=== PATIENT | male | born 1985 | race Caucasian/White ===

== ENCOUNTER 2022-01-30 20:57 | Emergency (ER) | payer OTHER, SELFPAY ==
--- NOTE | ~2022-01-30 | XR_ITS ---
EXAM: XR knee LT min 4V HISTORY: fall, BRUISING/ABRASION/SWELLING/PAIN UNDER PATELLA COMPARISON: None available FINDINGS: No fracture or dislocation. Normal mineralization. No significant degenerative changes. La rge volume fluid projects over the suprapatellar fossa. IMPRESSION: Large volume left knee joint effusion. No acute fracture or dislocation detected. Reviewed, dictated and finalized at location K. IMPRESSION: Large volume left knee joint effusion. No acute fracture or dislocation erlinda myers
--- NOTE | ~2022-01-30 | XR_ITS ---
EXAM: XR ankle RT min 3V HISTORY: FALL, LATERAL ANKLE PAIN AND BASE OF 5TH METATARSAL COMPARISON: None available FINDINGS: Normal mineralization. No fracture or dislocation. No lytic or blastic lesion. Joint space s maintained. No erosion or periosteal change. No large joint effusion. Lateral soft tissue swelling. IMPRESSION: Lateral soft tissue swelling, otherwise normal right ankle radiograph findings. Reviewed, dictated and finalized at location K.
[2022-01-30 20:59] VITALS: BP 152/99; PULSE 109; RESP 17; TEMP 36.8; O2SAT 99
--- NOTE | 2022-01-30 21:47 | ED.LOWEXIN ---
HPI - Extremity Injury (Lower) General Chief Complaint: Extremity Injury, Lower Stated Complaint: Left knee injury, right ankle injury-work injury Time Seen by Provider: 01/30/22 21:02 History of Present Illness HPI Narrative: 36-year-old male presents emergency room with complaints of left knee pain and right ankle pain. Patient states that he was walking down the stairs when he fell, landing on his left knee and then twisting his right ankle. Patient states the injuries occurred this morning while at work. States he took ibuprofen on multiple occasions today with a minimal amount of pain relief. Related Data Home Medications Medication Instructions Recorded Confirmed atorvastatin [Lipitor] 40 mg PO HS 01/30/22 01/30/22 Allergies Allergy/AdvReac Type Severity Reaction Status Date / Time No Known Allergies Allergy Verified 01/30/22 21:02 Review of Systems Review of Systems: CONSTITUTIONAL: Denies fever, chills, or sweats. EYES: Denies visual changes, redness, or discharge. ENT: Denies rhinorrhea, congestion, sore throat, or otalgia. CARDIOVASCULAR: Denies chest pain, palpitations, or edema. RESPIRATORY: Denies cough or dyspnea. GASTROINTESTINAL: Denies abdominal pain, nausea, vomiting, or diarrhea. GENITOURINARY: Denies dysuria or hematuria. SKIN: Denies rash or itching. MUSCULOSKELETAL: Reports left knee, and right ankle pain NEUROLOGIC: Denies headache, numbness, dizziness, or weakness. PSYCHIATRIC: Denies anxiety or depression. Exam Narrative: GENERAL: Well-appearing, well-nourished, and in no acute distress. HEAD: Normocephalic, atraumatic. EYES: PERRLA and EOMI. CHEST: Clear to auscultation. No respiratory distress. No wheezes rales or rhonchi HEART: Regular rate and rhythm. No murmur heard. Normal peripheral pulses. ABDOMEN: Soft, nontender, nondistended, normal active bowel sounds. EXTREMITIES: left knee: Soft tissue swelling tenderness infrapatellar and medial patellar surfaces. No joint laxity, full range of motion, no bony abnormality. Right ankle: Soft tissue swelling and tenderness to the lateral malleolus, no joint laxity, no bony abnormality, neurovascular intact distally SKIN: Warm, dry, no rash. NEURO: No focal deficits. Alert and oriented x3. PSYCH: Normal mood and affect. Course Vital Signs Vital signs: Vital Signs Temperature 36.8 C 01/30/22 20:59 Pulse Rate 109 H 01/30/22 20:59 Respiratory Rate 17 01/30/22 20:59 Blood Pressure 152/99 H 01/30/22 20:59 Pulse Oximetry 99 01/30/22 20:59 Temperature 36.8 C 01/30/22 20:59 Pulse Rate 109 H 01/30/22 20:59 Respiratory Rate 17 01/30/22 20:59 Blood Pressure 152/99 H 01/30/22 20:59 Pulse Oximetry 99 01/30/22 20:59 MDM - Extremity Injury (Lower) Differential Diagnosis Differential diagnosis: Likely ankle sprain and strain Medical Records Attestation: I reviewed the patient's medical records. Imaging Data Radiologist's impression: Impressions Ankle X-Ray 01/30/22 21:22 IMPRESSION: Lateral soft tissue swelling, otherwise normal right ankle radiograph findings. Knee X-Ray 01/30/22 21:23 IMPRESSION: Large volume left knee joint effusion. No acute fracture or dislocation detected. Discharge Plan Discharge Clinical Impression: Ankle sprain and strain, Contusion of knee, left Patient Disposition: Home, Self-Care Condition: Stable Instructions: Antibiotic Form Additional Instructions: Recommend following up with orthopedics and 1 week if your pain does not improve. We would consider wearing a boot for your right ankle for stabilization. If you continue to have pain in in a week, follow-up with either Ortho or your PCP for possible physical therapy. Prescriptions: New celecoxib [Celebrex] 200 mg capsule 200 mg PO BID Qty: 20 RF: 0 No Action atorvastatin [Lipitor] 40 mg Tablet 40 mg PO HS RF: 0 Follow-up/Referrals: Juan,CEDRIC Ynag [Primary C
== END 2022-01-30 22:02 | disposition home or self-care (01) ==
PROVIDERS: Emergency Provider Nurse Practitioner Family; PCP Physician Assistant
DX: S80.02XA Contusion of left knee, initial encounter (principal); S93.401A Sprain of unspecified ligament of right ankle, initial encounter; S96.911A Strain of unspecified muscle and tendon at ankle and foot level, right foot, initial encounter; W10.9XXA Fall (on) (from) unspecified stairs and steps, initial encounter
CPT/HCPCS: 73564; 73610; 99284

== ENCOUNTER → 2023-07-13 13:28 | Outpatient (CLI) | payer BC, SELFPAY ==
--- NOTE | ~2023-07-13 | CT_ITS ---
EXAMINATION: CT abdomen pelvis w con INDICATION: Left lower quadrant abdominal swelling TECHNIQUE: Computed tomographic images of the abdomen and pelvis were obtained after the administrati on of 100 cc of Omnipaque 350 intravenous contrast. The dose-length product (DLP) was 978.09 mGy-cm. Automated exposure control and iterative reconstruction technique were employed. COMPARISON: None available FINDINGS: The lung bases are clear. The heart size is normal. The liver, spleen, pancreas, gallbladde r, and adrenal glands are normal. There is a 1.6 cm cyst of the right kidney. The left kidney is unre markable. No pathologically enlarged abdominal or pelvic lymph nodes are identified. No free intraper itoneal gas or evidence of bowel obstruction. There is a 6.2 x 1.5 x 4.9 cm intramuscular lipoma of t he left lower abdominal wall corresponding to the palpable abnormality of concern. There is mild lumb ar spondylosis. IMPRESSION: 1. Intramuscular lipoma of the lower abdominal wall corresponding to the palpable abnormality of conc marlene. Reviewed, dictated and finalized at location B. IMPRESSION: 1. Intramuscular lipoma of the lower abdominal wall corresponding to the palpab le abnormality of concern.
== END ==
PROVIDERS: PCP Physician Assistant; Visit Provider Physician Assistant
DX: R19.04 Left lower quadrant abdominal swelling, mass and lump (principal)
CPT/HCPCS: 74177; Q9967

== ENCOUNTER 2024-12-11 13:41 | Outpatient (CLI) | payer BC, SELFPAY ==
--- NOTE | ~2024-12-11 | XR_ITS ---
EXAMINATION: XR chest 2V 12/11/2024 14:12 INDICATION: Cough PROCEDURE: 2 view chest COMPARISON: No prior studies for comparison. FINDINGS: The lungs are clear. The cardiomediastinal silhouette is within normal limits. There are no pleural effusions. There is no pneumothorax suspected. IMPRESSION: 1: NO ACUTE CARDIOPULMONARY DISEASE. Reviewed, dictated and finalized at location B. GER SITE
--- OUTSIDE RECORDS SUMMARY | 2024-12-11 13:50 | XMS_ITS | Referral Summary ---
Author Organization [facility] Address [address] [place] [address] Care Team Providers Care Weight And Balance Control Agent Name Role Phone Unavailable Primary Care Provider Unavailabl e Source Comments [facility],non-owned Affiliates and Associated Physician Practices is amultiple site organization consisting of ambulatory clinics and hospital sitesin [place], [place], [place] and [place]. This disclosure is being madepursuant to the Care Everywhere program and may not contain all information available regarding this patient. Last updated 18.[facility] Allergies No known active allergies Medications Be aware that medications may not be up to date on this document. Always verify current medications with the patient. No known medications Immunizations Name Administration Dates Next Due TDAP (7yrs+) 03/10/2017 Social History Tobacco Use Types Packs/Day Years Used Date Smoking Tobacco: Former Cigars Smokeless Tobacco: Never Sex and Gender Information Value Date Recorded Sex Assigned at Not on file Gender Identity Not on file Sexual Orientation Not on file Last Filed Vital Signs Vital Sign Reading Time Taken Comments Blood Pressure 122/80 12/31/2017 12:36 PM REGULATORY COMPLIANCE DIRECTOR Pulse 79 12/31/2017 12:36 PM REGULATORY COMPLIANCE DIRECTOR Temperature 36.9 C (98.4 F) 12/31/2017 12:36 PM REGULATORY COMPLIANCE DIRECTOR Respiratory Rate 14 12/31/2017 12:36 PM REGULATORY COMPLIANCE DIRECTOR Oxygen Saturation 97% 12/31/2017 12:36 PM REGULATORY COMPLIANCE DIRECTOR Inhaled Oxygen Concentration - - Weight 86.2 kg (190 lb) 12/31/2017 12:36 PM REGULATORY COMPLIANCE DIRECTOR Height 177.8 cm (5' 10 ) 12/31/2017 12:36 PM REGULATORY COMPLIANCE DIRECTOR Body Mass Index 27.26 12/31/2017 12:36 PM REGULATORY COMPLIANCE DIRECTOR Plan of Treatment Not on file
--- OUTSIDE RECORDS SUMMARY | 2024-12-11 13:50 | XMS_ITS | Continuity of Care Document ---
Author Organization [facility] Address [address] [place] [address] Phone Care Team Providers Care Osd Clerk Name Role Phone Juan A Gillespie MD Unavailable Unavailable Allergies, Adverse Reactions, Alerts Substance Reaction Status Criticality No Known Allergies Active No Inform ation Medications Medication Instructions Dosage Effective Dates (start - stop) Status Comments No Drug Therapy Prescribed Advance Directives Directive Yes / No Effective Date File Name No Information Encounters Encounter Description Practice Location Reason(s) For Visit Diagnoses Date Provider Providers [facility] [address], [place], [place], [id number], tel:[phone] [facility] No Information 5 Trame Greencastle. [address] [facility], [address], [place], [place], [address] . tel:[phone] [facility], [address], [place], [place], [address], tel:[phone] [facility] Short lasting unilateral neuralgiform headache with conjunctival injection and tearing 5 Trame Juan A. [address], [place], [place], [address] . tel:[phone] [facility], [address], [place], [place], [address], [place] tel:[phone] [facility] Short lasting unilateral neuralgiform headache with conjunctival injection and tearing 5 Trame Greencastle. [address], [address], [place], [place], [address] . tel:[phone] [facility], [address], [place], [place], [address], tel:[phone] [facility] Routine general medical examination at a health care facilityShort lasting unilateral neuralgiform headache with conjunctival injection and tearing [phone] Miguel Velazco. [address], [place], [place], [address] . tel:[phone] Referring Provider: Juan A Gillespie, [address], [place], [address] . tel:[phone] [facility], [address], [place], [place], [address], tel:[phone] [facility] HEALTH EXAM-GROUP SURVEY [phone] Velaz[address]. [address], [place], [place], [address] . tel:[phone] Family History Family Member Type Diagnosis Age At Onset Maternal grandfather Problem (finding) pulmonary emphy sema Sister Problem (finding) Alive and well Mother Problem (finding) hypertension Maternal grandmother Problem (finding) hypertension Father Problem (finding) hypertension Maternal grandmother Problem (finding) Cardiovascular disease Mother Problem (finding) malignant neop lasm of breast in first degree relative Father Problem (finding) raised blood lipids Mother Problem (finding) raised blood lipids Payers Payer name Insurance type Covered libertarian ID Authorrex duarte(s) [facility] [id number] Social History Type Description Quantity Date Captured Comments Alcohol Use Details Unknown Caffeine Use Details Unknown Tobacco Use Status Smoking Status No Information Sex Male Chief Complaint And Reason For Visit No Information Reason For Referral Reason For Referral No Information History Of Present Illness Encounter Date Complaint History Of Prese nt Illness No Information Functional Status Date Functional Assessmen t No Information Medications Administered Medication Instructions Dosage Effective Dates (start - stop) Status Comments No Drug Therapy Prescribed Instructions Date Instruction Additional Infor mation No Information Assessments Type Assessment Date No Information Patient Care Teams Name Effective Dates (start - stop) Status Members No Information
--- OUTSIDE RECORDS SUMMARY | 2024-12-11 13:50 | XMS_ITS | Patient Health Summary ---
Author Organization [facility] Address [address] [place] [address] Care Team Providers Care Block Sorter Name Role Phone Unavailable Primary Care Provider Unavailabl e Note from [facility],non-owned Affiliates and Associated Physician Practices is amultiple site organization consisting of ambulatory clinics and hospital sitesin [place], [place], [place]. This disclosure is being madepursuant to the Care Everywhere program and may not contain all information available regarding this patient. Last updated 18.[facility] Allergies No known active allergies Medications Be aware that medications may not be up to date on this document. Always verify current medications with the patient. No known medications Immunizations * TDAP (7yrs+)(Given 03/10/2017) Social History Tobacco Use Types Packs/Day Years Used Date Smoking Tobacco: Former Cigars Smokeless Tobacco: Never Sex and Gender Information Value Date Recorded Sex Assigned at Not on file Gender Identity Not on file Sexual Orientation Not on file Last Filed Vital Signs Vital Sign Reading Time Taken Comments Blood Pressure 122/80 12/31/2017 12:36 PM ART DIRECTOR Pulse 79 12/31/2017 12:36 PM ART DIRECTOR Temperature 36.9 C (98.4 F) 12/31/2017 12:36 PM ART DIRECTOR Respiratory Rate 14 12/31/2017 12:36 PM ART DIRECTOR Oxygen Saturation 97% 12/31/2017 12:36 PM ART DIRECTOR Inhaled Oxygen Concentration - - Weight 86.2 kg (190 lb) 12/31/2017 12:36 PM ART DIRECTOR Height 177.8 cm (5' 10 ) 12/31/2017 12:36 PM ART DIRECTOR Body Mass Index 27.26 12/31/2017 12:36 PM ART DIRECTOR Procedures * STREP A SCREEN - POINT OF CARE (AMB) STL(Performed 12/31/2017) Performed for Acute streptococcal pharyngitis Results * (ABNORMAL) STREP A SCREEN - POINT OF CARE (AMB) STL (12/31/2017) Strep A Rapid POCT Positive(A) Negative Strep A Internal Control Present Lot # [id number] Expiration Date 07/14/2019 Throat ENTIRE THROAT (SURFACE REGION OF NECK) / Unknown 12/31/2017 Vernell Wisdom CUSTOMER SERVICE CONSULTANT-BRICK CATCHER LAB - POINT OF CARE ORDERABLES
--- OUTSIDE RECORDS SUMMARY | 2024-12-11 13:50 | XMS_ITS | Encounter Summary ---
Author Organization [facility] Address [address] [place] [address] Care Team Providers Care Stadium Attendant Name Role Phone Celia Martinez Primary Care Pr ovider Gerald Antony MD Primary Care Provider [phone] Encounter Details Date Type Department Care Team (Late st Contact Info) Description 08/30/2023 Orders Only [facility] Cancer Genetics Department [address] [place] [id number] Crystal Bacon, [facility] [address] [facility] [address] [place] [address] Family history of genetic disease carrier (Primary Dx); Family history of breast cancer Social History Tobacco Use Types Packs/Day Years Used Date Smoking Tobacco: Never Sex and Gender Information Value Date Recorded Sex Assigned at Not on file 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 Gender Identity Not on file Sexual Orientation Not on file documented as of this encounter Plan of Treatment Not on file documented as of this encounter Visit Diagnoses Diagnosis Family history of genetic disease carrier- Primary Family history of breast cancer Family history of malignant neoplasm of breast documented in this encounter Care Teams Stadium Attendant Relationship Specialty Start Date End Date Celia Martinez PA PCP - General 10/02/21 01/22/24 Gerald Antony MD [address] [facility] [address] [place] [address] PCP - General Family Medicine 01/23/24 documented as of this encounter
--- OUTSIDE RECORDS SUMMARY | 2024-12-11 13:50 | XMS_ITS | Clinical Summary ---
Author Organization [facility] [address] Address [address] [place] [id number] Care Team Providers Care Pmo Lead Name Role Phone Gerald Antony MD Primary Care Provider [phone] Allergies No known active allergies Medications atorvastatin (LIPITOR) 40 mg tablet Take 1 tablet (40 mg total) by mouth daily Active multivit-min/gilmar cornelio fumarate (MULTI VITAMIN ORAL) Take by mouth Active oxyCODONE-acetam inophen (PERCOCET) 5-325 mg per tablet Take 1 tablet by mouth every 4 (four) hours as needed Active benzonatate (TESSALON) 200 mg capsuleIndicatio ns:Lower respiratory infection (e.g., bronchitis, pneumonia, pneumonitis, pulmonitis) Take 1 capsule (200 mg total) by mouth 3 (three) times a day as needed for cough 30 capsule 02/17/2024 Active Active Problems Problem Noted Date Diagnosed Date Hypersomnolence 05/16/2024 Encounter for medical examination to establish c are 01/23/2024 Assessment & Plan (01/23/2024 9:51 AM CDT): A(n) initial well visit to establish care has been performed today. Kar Linton is not up to date on screening tests. He is in need of hepatitis c screening and Cholesterol screening-. He is not up to date on needed preventative vaccinations; He is in need of Covid-19 (booster). We discussed healthy lifestyle habits, educational material has been given. Medications reviewed, changes documented as per the medical record and discussed with patient along with risks vs benefits. 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 Immunizations Immunization Administration Dates Next Due DTP 05/24/1988, 5,1983,07/24,1983 Influenza, Quadrivalent, Spl it, Preservative Free, Intramuscular 08/08/2020 MMR 03/31/1993,07/01/1984 OPV 05/24/1988, 5,1983,07/24,1983 Td, adsorbed 07/23/1998 Tdap 03/10/2017 Surgical History Surgery Date Site/Laterality Comments MASS EXCISION Medical History Medical History Date Comments Hyperlipidemia Sleep difficulties Family History Medical History Relation Name Comments No Known Problems Daughter Lizbeth Gorlin syndrome Father Emil no genetic t esting (assumed PTCH1+) Melanoma Father Emil COPD Maternal Grandfather Nabil COPD Maternal Grandmother Jillian Diabetes Maternal Grandmother Jillian Heart failure Maternal Grandmother Jillian Breast cancer Mother Claudia no genetic krunal ting No Known Problems Paternal Grandfather Catalino No Known Problems Paternal Grandmother Jessie Gorlin syndrome Sister Rosaline PTCH1 Positi ve No Known Problems Son Pop Relation Name Status Comments Daughter Lizbeth Alive Father Emil Alive Maternal Grandfather Nabil (Age 80) Maternal Grandmother Jillian (Age 82) Mother Claudia Alive Paternal Grandfather Catalino (Age 80) Paternal Grandmother Jessie (Age 80) Sister Rosaline Alive Son Pop Alive Social History Tobacco Use Types Packs/Day Years Used Date Smoking Tobacco: Never Smokeless Tobacco: Never AUDIT-C Answer Date Recorded Q1: How often do you have a drink containing alc ohol? Monthly or less 01/23/2024 Q2: How many drinks containi ng alcohol do you have on a typical day when you are drinking? 1 or 2 01/23/2024 Q3: How often do you have si x or more drinks on one occasion? 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 Not on file Not on file Obstetrics History Last Filed Vital Signs Vital Sign Reading Time Taken Comments Blood Pressure 136/98 02/17/2024 12:22 PM CDT Pulse 68 02/17/2024 12:22 PM CDT Temperature 36.1 C (96.9 F) 02/17/2024 12:22 PM CDT Respiratory Rate 16 02/17/2024 12:22 PM CDT Oxygen Saturation 100% 02/17/2024 12:22 PM CDT Inhaled Oxygen Concentration - - Weight 100.7 kg (222 lb) 02/17/2024 12:22 PM CDT Height 180.3 cm (5' 11 ) 02/17/2024 12:22 PM CDT Body Mass Index 30.96 02/17/2024 12:22 PM CDT Plan of Treatment Health Maintenance Due Date Last Done Comments Varicella Vaccines (1 of 2 - 13+ 2-dose series) 1996 Hepatitis B Screening 2001 Influenza Vaccine (#1) 2024 08/08/2020 Depression Screening 01/22/2025 01/23/2024 Regular Well Visit/Exam 18-64 01/22/2025 01/23/2024 DTaP/Tdap/Td Vaccine (7 - Td or Tdap) 03/10/2027 03/10/2017, 07/23/1998, 05/24/1988, Additional history exists Covid-19 Vaccine Discontinued 11/03/2020, 10/13/2020 Hepatitis C Screening Completed 01/23/2024 HPV Vaccines Aged Out No longer eligi ble based on patient's age to complete this topic Pneumococcal vaccine <65 Aged Out No longer eligible based on patient's age to complete this topic Procedures Procedure Name Priority Date/Time Associated Diagnosis Comments HEPATITIS C ANTIBODY Routine 01/23/2024 9:58 AM CDT Encounter for hepatitis C screening test for low risk patient from Last 3 Months or Most Recently Relevant to Health Maintenance Results * Hepatitis C antibody Blood (01/23/2024 9:58 AM CDT) Hep C Ab Nonreactive Nonreactive Comment: Interpretive Data Nonreactive: Antibodies to HCV not detected. Does NOT exclude the possibility of recent exposure to HCV. Equivocal: Equivocal for HCV antibodies. Supplemental molecular testing will be automatically performed to determine infection status in accordance with current CDC screening recommendations. Reactive: Positive for HCV antibodies. This may represent current or past HCV infection. Supplemental molecular testing will be automatically performed to determine current infection status in accordance with current CDC screening recommendations. Interpretive data was last revised on 2020. Blood 01/23/2024 9:58 AM CDT 01/23/2024 2:14 PM CDT Gerald Antony MD LAB MICROBIOLOGY - GENERAL ORDERABLES Final Result Performing Organization Address City/State/[facility] [place] Phone Number [facility] [address] Department [place] [address] from Last 3 Months or Most Recently Relevant to Health Maintenance Insurance [facility] Care Teams Pmo Lead Relationship Specialty Start Date End Date Gerald Antony MD [address] [address] PCP - General Family Medicine 01/23/24
--- OUTSIDE RECORDS SUMMARY | 2024-12-11 13:50 | XMS_ITS | Referral Summary ---
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 Not on file Not on file Last Filed Vital Signs [...] 02/17/2024 12:22 PM CDT Plan of Treatment Not on file Procedures Procedure Name Priority Date/Time Associated Diagnosis [...] 9:58 AM CDT 01/23/2024 2:14 PM CDT us Gerald Antony MD LAB MICROBIOLOGY - GENERAL ORDERABLES Final Result [facility] [address] Department [place] [address] from Last 3 Months or Most Recently Relevant to Health Maintenance Insurance [facility] [place] Care Teams Retail Field Merchandiser Relationship Specialty Start Date End Date Gerald Antony MD [address] [address] PCP - General Family Medicine 01/23/24
--- OUTSIDE RECORDS SUMMARY | 2024-12-11 13:50 | XMS_ITS | Clinical Summary ---
Author Organization [facility] [employer] Address [address] [place] [address] Care Team Providers Care Drupal Developer Name Role Phone Unavailable Primary Care Provider Unavailabl e Source Comments [facility] [employer],non-owned Affiliates and Associated Physician Practices is amultiple site organization consisting of ambulatory clinics and hospital sitesin [place], [place]. This disclosure is being madepursuant to the Care Everywhere program and may not contain all information available regarding this patient. Last updated 18.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 Pulse 79 12/31/2017 12:36 PM 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 Temperature 36.9 C (98.4 F) 12/31/2017 12:36 PM 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 Respiratory Rate 14 12/31/2017 12:36 PM 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 Oxygen Saturation 97% 12/31/2017 12:36 PM 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 Inhaled Oxygen Concentration - - Weight 86.2 kg (190 lb) 12/31/2017 12:36 PM 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 Height 177.8 cm (5' 10 ) 12/31/2017 12:36 PM 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 Body Mass Index 27.26 12/31/2017 12:36 PM 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 Plan of Treatment Health Maintenance Due Date Last Done Comments LIPID TESTING 1983 HIV SCREENING 1998 HEPATITIS C SCREENING 03/21/2001 HEPATITIS B VACCINE (1 of 3 - 19+ 3-dose series) 2002 COVID-19 VACCINE (2023-2 5 season) 2024 INFLUENZA VACCINE (#1) 2024 DEPRESSION SCREENING 10/24/2024 DTAP/TDAP/TD VACCINES (2 - T d or Tdap) 03/10/2027 03/10/2017 ZOSTER VACCINE (1 of 2) 2033 HIB VACCINE Aged Out No longer eligi ble based on patient's age to complete this topic HPV VACCINE Aged Out No longer eligi ble based on patient's age to complete this topic MENINGOCOCCAL (Group B) VACCINE Aged Out No longer eligible based on patient's age to complete this topic MENINGOCOCCAL VACCINE Aged Out No chaka usama eligible based on patient's age to complete this topic PNEUMOCOCCAL VACCINE Aged Out No long er eligible based on patient's age to complete this topic
--- OUTSIDE RECORDS SUMMARY | 2024-12-11 13:50 | XMS_ITS | Data Portability ---
Author Organization [place] [employer], Main Office Address [address] [place] [address] Care Team Providers Care Firer Boiler Name Role Phone ROSALINEMERLYN Svp Group Director [phone] OSCAR TAVERAS Primary Care Provider OSCAR TAVERAS Referring Provider Assessment Encounter Date Assessment Date Assessment LastModified by Organization Details LastModified Time 08/30/2023 08/30/2023 Abdominal wall mass. Intramuscular lipoma per CT report. Will obtain the actual images. But in the meantime we will schedule for excision under anesthesia. Risks and benefits were discussed risks include bleeding, infection numbness and weakness Not available 08/30/2023 13:07:51 09/29/2023 09/29/2023 Status post excision intramuscular lipoma left lower quadrant abdominal wall. Doing well. Follow up p.r.n. pathology benign Not available 09/29/2023 10:46:34 Plan of Treatment Reminders Order Date Submit Date Provider Last Modified By Organization Details Last Modified Time Details Appointments None recorded. Lab lipid panel, serum 2022 023 [email or web address] [facility], 2022 [address], [address], [place], [address], 3 09:06:39 PSA, serum or plasma 2022 023 [email or web address] [facility], 2022 [address], [address], [place], [address], 3 09:06:40 urinalysis, complete 2022 023 [email or web address] [facility], 2022 [address], [address], [place], [address], 3 09:06:40 culture, urine 2022 023 [email or web address] [facility], 2022 E[address], [address], [place], [address], 3 09:06:40 CT + NG RNA, PCR, unspecified specimen 2022 023 [email or web address] [facility], 2022 [address], [address], [place], [address], 3 09:06:40 TSH + free T4, serum 2022 023 [facility], 2022 Eben Hernandez, [address], [place], [address], 3 08:57:40 CBC w/ auto diff 2022 023 [email or web address] [facility], 2022 [address], [address], [place], [address], 3 09:06:40 CMP, serum or plasma 2022 023 [email or web address] [facility], 2022 [address], [address], [place], [address], 3 09:06:40 HbA1c (hemoglobin A1c), blood 2022 023 [email or web address] [facility], 2022 [address], [address], [place], [address], 3 09:06:40 Referral None recorded. Procedures None recorded. Surgeries None recorded. Imaging CT, abdomen + pelvis, w/ contrast - approved [id number] 07/06/2023 - 09/03/[address] [facility], 2022 El[address], [address], [place], [address], 3 08:36:48 Medication Orders None recorded. Patient TargetsNo targets recorded. Patient InstructionsNo instructions recorded. Reason for Referral None Reported. Results Created Date Observation Date Name Description Value Unit Range Abnormal Flag Note LastModifiedBy Organization Detail LastModifiedTime 12/04/19 22 12/07/2021 CULTU RE, URINE , ROUTI NE culture, urine, routine CULTU RE, URINE , ROUTI NE Micro Numbe r: [id number] Test Statu s: Final Speci men Sourc e: Urine Speci men Quali ty: Adequ ate Resul t: No Growt h We recei russell a prese rved urine cultu re trans port tube with eithe r no order indic ated or a sourc e which is inapp ropri ate for the test reque sted. A urine cultu re was perfo rmed. If this is not what you inten ded to order , pleerik e conta ct your local clien t servi ce repre senta tive immed iatel y so that we can adjus t our gina ng appro priat ngozi. You may also inqui re about alter nativ e or addit ional testi ng. Not Available [address] [address] [place], [address], 12/07/2021 11:39:42 12/04/19 22 12/07/2021 TESTO STERO NE, FREE (DIAL YSIS) AND TOTAL ,MS testosterone , total, MS 433 NG/dL 250-11 00 For addit ional raheelr juana guajardo refer to https ://ed ucati on.qu estdi agnos tics. com/f aq/FA Q165 (This link is being provi ded for infor matlindsey nal/e ducat ional purpo ses only. ) (Note ) This test was devel oped and its saravanan tical perfo rmanc e bryan cteri stics have been deter mined by [employer]. It has not been clear ed or appro russell by the FDA. This assay has been valid ated pursu ant to the CLIA regul ation s and is used for clini keren purpo ses. Not Available [address], [address], 12/07/2021 11:39:42 12/04/19 22 12/07/2021 TESTO STERO NE, FREE (DIAL YSIS) AND TOTAL ,MS testosterone , free 83.5 pg/mL 35.0-1 55.0 (Note ) This test was devel oped and its saravanan tical perfo rmanc e bryan cteri stics have been deter mined by [employer]. It has not been clear ed or appro russell by the FDA. This assay has been valid ated pursu ant to the CLIA regul ation s and is used for clini keren purpo ses. DANIELA med fusio n [address] [facility] [address] [facility] [address] [phone] Garfield irene MD Not Available [facility] [address], [address], 12/07/2021 11:39:42 12/04/19 22 12/07/2021 URINA LYSIS REFLE X color yellow yellow normal Not Available [address], [address], 12/07/2021 11:39:41 12/04/19 22 12/07/2021 URINA LYSIS REFLE X appearance clear clear normal Not Available [facility] [address], [address], 12/07/2021 11:39:41 12/04/19 22 12/07/2021 URINA LYSIS REFLE X specific gravity 1.023 1.001- 1.035 normal Not Available [facility] [address], [address], 12/07/2021 11:39:41 12/04/19 22 12/07/2021 URINA LYSIS REFLE X pH 5.5 5.0-8. 0 normal Not Available [facility] [address] [place], [address], 12/07/2021 11:39:41 12/04/19 22 12/07/2021 URINA LYSIS REFLE X glucose negati ve negati ve normal Not Available [facility] [address], [address], 12/07/2021 11:39:41 12/04/19 22 12/07/2021 URINA LYSIS REFLE X bilirubin negati ve negati ve normal Not Available [facility] [address], [address], 12/07/2021 11:39:41 12/04/19 22 12/07/2021 URINA LYSIS REFLE X ketones negati ve negati ve normal Not Available [address], [address], 12/07/2021 11:39:41 12/04/19 22 12/07/2021 URINA LYSIS REFLE X occult blood negati ve negati ve normal Not Available [address], [address], 12/07/2021 11:39:41 12/04/19 22 12/07/2021 URINA LYSIS REFLE X protein negati ve negati ve normal Not Available [address], [address], 12/07/2021 11:39:41 12/04/19 22 12/07/2021 URINA LYSIS REFLE X nitrite negati ve negati ve normal Not Available [address], [address], 12/07/2021 11:39:41 12/04/19 22 12/07/2021 URINA LYSIS REFLE X leukocyte esterase negati ve negati ve normal Not Available [facility] [address], [address], 12/07/2021 11:39:41 12/04/19 22 12/07/2021 CBC (INCL UDES DIFF/ PLT) white blood cell count 6.2 thous and/u L 3.8-10 .8 normal Not Available [address], [address], 12/07/2021 11:39:40 12/04/19 22 12/07/2021 CBC (INCL UDES DIFF/ PLT) red blood cell count 5.39 meagan on/uL 4.20-5 .80 normal Not Available [address], [address], 12/07/2021 11:39:40 12/04/19 22 12/07/2021 CBC (INCL UDES DIFF/ PLT) hemoglobin 16.3 g/dL 13.2-1 7.1 normal Not Available [address], [address], 12/07/2021 11:39:40 12/04/19 22 12/07/2021 CBC (INCL UDES DIFF/ PLT) hematocrit 47.2 % 38.5-5 0.0 normal Not Available [address], [address], 12/07/2021 11:39:40 12/04/19 22 12/07/2021 CBC (INCL UDES DIFF/ PLT) MCV 87.6 fL 80.0-1 00.0 normal Not Available [address], [address], 12/07/2021 11:39:40 12/04/19 22 12/07/2021 CBC (INCL UDES DIFF/ PLT) MCH 30.2 pg 27.0-3 3.0 normal Not Available [address], [address], 12/07/2021 11:39:40 02/11/20 22 12/07/2021 CBC (INCL UDES DIFF/ PLT) MCHC 34.5 g/dL 32.0-3 6.0 normal Not Available [address], [address], 12/07/2021 11:39:40 12/04/19 22 12/07/2021 CBC (INCL UDES DIFF/ PLT) RDW 13.2 % 11.0-1 5.0 normal Not Available [address], [address], 12/07/2021 11:39:40 12/04/19 22 12/07/2021 CBC (INCL UDES DIFF/ PLT) platelet count 257 thous and/u L 140-40 0 normal Not Available [address], [address], 12/07/2021 11:39:40 12/04/19 22 12/07/2021 CBC (INCL UDES DIFF/ PLT) MPV 10.1 fL 7.5-12 .5 normal Not Available [address], [address], 12/07/2021 11:39:40 12/04/19 22 12/07/2021 CBC (INCL UDES DIFF/ PLT) absolute neutrophils 3875 cells /uL 1500-7 800 normal Not Available [address], [address], 12/07/2021 11:39:40 12/04/19 22 12/07/2021 CBC (INCL UDES DIFF/ PLT) absolute lymphocytes 1376 cells /uL 850-39 00 normal Not Available [address], [address], 12/07/2021 11:39:40 12/04/19 22 12/07/2021 CBC (INCL UDES DIFF/ PLT) absolute monocytes 657 cells /uL 200-95 0 normal Not Available [facility] [address], [address], 12/07/2021 11:39:40 12/04/19 22 12/07/2021 CBC (INCL UDES DIFF/ PLT) absolute eosinophils 229 cells /uL 15-500 normal Not Available [facility] [address], [address], 12/07/2021 11:39:40 12/04/19 22 12/07/2021 CBC (INCL UDES DIFF/ PLT) absolute basophils 62 cells /uL 0-200 normal Not Available [facility] [address], [address], 12/07/2021 11:39:40 12/04/19 22 12/07/2021 CBC (INCL UDES DIFF/ PLT) neutrophils 62.5 % normal Not Available [facility] [address], [address], 12/07/2021 11:39:40 12/04/19 22 12/07/2021 CBC (INCL UDES DIFF/ PLT) lymphocytes 22.2 % normal Not Available [facility] [address], [address], 12/07/2021 11:39:40 12/04/19 22 12/07/2021 CBC (INCL UDES DIFF/ PLT) monocytes 10.6 % normal Not Available [facility] [address], [address], 12/07/2021 11:39:40 12/04/19 22 12/07/2021 CBC (INCL UDES DIFF/ PLT) eosinophils 3.7 % normal Not Available [facility] [address], [address], 12/07/2021 11:39:40 12/04/19 22 12/07/2021 CBC (INCL UDES DIFF/ PLT) basophils 1.0 % normal Not Available [facility] [address] [place], [address], 12/07/2021 11:39:40 12/04/19 22 12/07/2021 HEMOG LOBIN A1C hemoglobin A1C 4.8 %_of_ total _HGB <5.7 normal For the purpo se of nina may for the prese nce of diabe krunal: <5.7% Consi stent with the absen ce of diabe krunal 5.7-6 .4% Consi stent with incre ased risk for diabe krunal (pred iabet es) > or =6.5% Consi stent with diabe krunal This assay resul t is consi stent with a decre ased risk of diabe krunal. Curre ntly, no conse nsus exist s vidhya arrington use of hemog lobin A1c for diagn osis of diabe krunal in child haydee. Accor ding to Ameri can Diabe krunal Assoc iatio n (ADA) guide lines , hemog lobin A1c <7.0% repre sents optim al contr ol in non-p regna nt diabe tic patie nts. Diffe rent metri cs may apply to speci fic patie nt popul ation s. Stand ards of Medic al Care in Diabe krunal(A DA). Not Available [address] [address] [place], [address], 12/07/2021 11:39:39 12/04/19 22 12/07/2021 COMPR EHENS TIMBO METAB OLIC PANEL glucose 95 mg/dL 65-99 normal Fasti ng refer ence inter yesika Not Available [facility] [address] [address] [place], [address], 12/07/2021 11:39:39 12/04/19 22 12/07/2021 COMPR EHENS TIMBO METAB OLIC PANEL urea nitrogen (BUN) 15 mg/dL 7-25 normal Not Available [facility] [address] [address] [place], [address], 12/07/2021 11:39:39 12/04/19 22 12/07/2021 COMPR EHENS TIMBO METAB OLIC PANEL creatinine 1.02 mg/dL 0.60-1 .35 normal Not Available [address], [address], 12/07/2021 11:39:39 12/04/19 22 12/07/2021 COMPR EHENS TIMBO METAB OLIC PANEL eGFR non-afr. barbadian 93 mL/mi n/1.7 3m2 > or = 60 normal Not Available [address], [address], 12/07/2021 11:39:39 12/04/19 22 12/07/2021 COMPR EHENS TIMBO METAB OLIC PANEL eGFR 108 mL/mi n/1.7 3m2 > or = 60 normal Not Available [address], [address], 12/07/2021 11:39:39 12/04/19 22 12/07/2021 COMPR EHENS TIMBO METAB OLIC PANEL BUN/creatini ne ratio not applic able (calc ) 6-22 Not Available [address], [address], 12/07/2021 11:39:39 12/04/19 22 12/07/2021 COMPR EHENS TIMBO METAB OLIC PANEL sodium 138 mmol/ L 135-14 6 normal Not Available [address], [address], 12/07/2021 11:39:39 12/04/19 22 12/07/2021 COMPR EHENS TIMBO METAB OLIC PANEL potassium 4.1 mmol/ L 3.5-5. 3 normal Not Available [address], [address], 12/07/2021 11:39:39 12/04/19 22 12/07/2021 COMPR EHENS TIMBO METAB OLIC PANEL chloride 107 mmol/ L 98-110 normal Not Available [address], [place], [address], 12/07/2021 11:39:39 12/04/19 22 12/07/2021 COMPR EHENS TIMBO METAB OLIC PANEL carbon dioxide 23 mmol/ L 20-32 normal Not Available [facility] [address], [address], 12/07/2021 11:39:39 12/04/19 22 12/07/2021 COMPR EHENS TIMBO METAB OLIC PANEL calcium 9.8 mg/dL 8.6-10 .3 normal Not Available [address], [address], 12/07/2021 11:39:39 12/04/19 22 12/07/2021 COMPR EHENS TIMBO METAB OLIC PANEL protein, total 7.4 g/dL 6.1-8. 1 normal Not Available [address], [address], 12/07/2021 11:39:39 12/04/19 22 12/07/2021 COMPR EHENS TIMBO METAB OLIC PANEL albumin 5.0 g/dL 3.6-5. 1 normal Not Available [address], [address], 12/07/2021 11:39:39 12/04/19 22 12/07/2021 COMPR EHENS ITMBO METAB OLIC PANEL globulin 2.4 g/dL_ (calc ) 1.9-3. 7 normal Not Available [facility] [address], [address], 12/07/2021 11:39:39 12/04/19 22 12/07/2021 COMPR EHENS TIMBO METAB OLIC PANEL albumin/glob ulin ratio 2.1 (calc ) 1.0-2. 5 normal Not Available [facility] [address], [address], 12/07/2021 11:39:39 12/04/19 22 12/07/2021 COMPR EHENS TIMBO METAB OLIC PANEL bilirubin, total 0.7 mg/dL 0.2-1. 2 normal Not Available [address], [address], 12/07/2021 11:39:39 12/04/19 22 12/07/2021 COMPR EHENS TIMBO METAB OLIC PANEL alkaline phosphatase 54 U/L 36-130 normal Not Available [address] [address] [place], [address], 12/07/2021 11:39:39 12/04/19 22 12/07/2021 COMPR EHENS TIMBO METAB OLIC PANEL AST 47 U/L 10-40 high Not Available [address], [address], 12/07/2021 11:39:39 12/04/19 22 12/07/2021 COMPR EHENS TIMBO METAB OLIC PANEL ALT 105 U/L 9-46 high Not Available [address], [address], 12/07/2021 11:39:39 12/04/19 22 12/07/2021 LIPID PANEL WITH RATIO S cholesterol, total 306 mg/dL <200 high Not Available [address], [address], 12/07/2021 11:39:38 12/04/19 22 12/07/2021 LIPID PANEL WITH RATIO S HDL cholesterol 75 mg/dL > or = 40 normal Not Available [address], [address], 12/07/2021 11:39:38 12/04/19 22 12/07/2021 LIPID PANEL WITH RATIO S triglyceride s 158 mg/dL <150 high Not Available [address], [address], 12/07/2021 11:39:38 12/04/19 22 12/07/2021 LIPID PANEL WITH RATIO S LDL-choleste rol 199 mg/dL _(keren c) high LDL-C level s > or = 190 mg/dL may indic ate famil ial hyper liliana stero lemia (FH). Clini keren asses sment and measu remen t of blood lipid level s shoul d be consi dered for all first degre e relat kel of patie nts with an FH diagn osis. For quest ions about testi ng for famil ial hyper liliana stero lemia , pleas e call [facility] at 1.866 .GENE .INFO . Marco Flores, et al. J Natio nal Lipid Assoc iatio n Recom menda tions for Patie nt-Ce ntere d Manag ement of Dysli pidem ia: Part 1 Journ al of Clini keren Lipid ology 2015; 9(2), 129-1 69. Refer ence range : <100 Sean able range <100 mg/dL for prima ry preve ntion ; <70 mg/dL for patie nts with CHD or diabe tic patie nts with > or = 2 CHD risk facto rs. LDL-C is now calcu lated using the Judi n-Hop kins calcu latio n, which is a valid ated novel metho d provi ding blanca r accur acy than the Fried lisy equat ion in the estim ation of LDL-C . Judi goodwin SS et al. GENTRY. 2013; 310(1 9): 2061- 2068 (http ://ed ucati on.Qu Ihsan [employer]. com/f aq/FA Q164) Not Available [facility] [address] [place], [address], 12/07/2021 11:39:38 12/04/19 22 12/07/2021 LIPID PANEL WITH RATIO S chol/HDLC ratio 4.1 (calc ) <5.0 normal Not Available [facility] [address] [place], [address], 12/07/2021 11:39:38 12/04/19 22 12/07/2021 LIPID PANEL WITH RATIO S LDL/HDL ratio 2.7 (calc ) Below [place] ge Risk: <2.28 [place] Risk: 2.29- 4.90 Moder ate Risk: 4.91- 7.12 High Risk: >7.13 Not Available [address] [address] [place], [address], 12/07/2021 11:39:38 12/04/19 22 12/07/2021 LIPID PANEL WITH RATIO S non HDL cholesterol 231 mg/dL _(keren c) <130 high Non-H DL level > or = 220 is very high and may indic ate beto ic famil ial hyper liliana stero lemia (FH). Clini keren asses sment and measu remen t of blood lipid level s shoul d be consi dered for all first -degr ee relat kel of patie nts with an FH diagn osis. For patie nts with diabe krunal plus 1 major ASCVD risk facto r, treat ing to a non-H DL-C goal of <100 mg/dL (LDL- C of <70 mg/dL ) is consi dered a thera peuti c optio n. Not Available [address] [address] [place], [address], 12/07/2021 11:39:38 12/04/19 22 12/07/2021 TSH+F REE T4 TSH 1.70 mIU/L 0.40-4 .50 normal Not Available [facility] [address] [address] [place], [address], 12/07/2021 11:39:37 12/04/19 22 12/07/2021 TSH+F REE T4 T4, free 1.2 NG/dL 0.8-1. 8 normal Not Available [address] [address] [place], [address], 12/07/2021 11:39:37 02/17/20 22 02/11/2022 home sleep study No observ ation record ed. [id number] [facility] [address], [place], [address], 12/22/2022 20:55:59 04/30/20 22 01/30/2022 XR, ankle No observ ation record ed. [id number] [facility] [address], [place], [address], 12/22/2022 20:55:59 07/14/20 23 07/13/2023 CT, abdom en + pelvi s, w/ contr ast No observ ation record ed. [email or web address] [facility] [address], [place], [address], 08/11/2023 16:08:21 Result Notes None recorded. Problems Name Problem SNOMED Code Status Onset Date Resolution Date Notes Provider Name and Address Organization Details Recorded Time Sprain of left ankle 2506284335869 9105 Active 2020 Not Available [facility] 3 20:55:01 Strain of peroneal tendon 772039296 Active 2020 Not Available [facility] 3 20:55:01 Mixed hyperlipid emia 421324061 Active 2021 Not Available [facility] 3 20:55:02 Elevated blood-pres sure reading without diagnosis of hypertensi on 536334948 Active 2021 Not Available [facility] 3 20:55:02 Liver enzymes level above reference range 411286495 Active 2021 Not Available [facility] 3 20:55:02 Sleep apnea 08905344 Active 2021 Not Available [facility] 3 20:55:02 Mass of left lower quadrant of abdomen 904310085 Active 2022 PRANEETH Stanton [address] [facility], [address], [place], [address] , [place] [facility] 3 09:33:19 Pain of left testicle 5805052069938 9100 Active 2022 PRANEETH Stanton [address], [address], [place], [address] , [facility] [employer] 3 09:35:07 Lipoma of abdominal wall 087694604 Active 2022 PRANEETH Stanton [address], [address], [place], [address] , [facility] [employer] 3 16:09:12 Mass of soft tissue 600134150 Active 2022 Brennen orlando MD [address], [address], [place], [address] , [employer] [facility] [employer] 13:37:36 Problem Notes None recorded. Procedures Surgical History Date Name Laterality Status Provider Name and Address Organization Details Recorded Time 09/21/20 other completed Rosaline Tejeda MA [place] [employer] [facility] [employer] 09/22/2023 11:01:47 reconstruction of head of right radius completed Not Available [facility] 12/22/2022 20:54:25 Imaging Results Imaging Date Name Status LastModified by Organiz ation Details LastModified Time 02/11/2022 home sleep study completed [id number] [address], [place], [address], 12/22/2022 20:55:59 01/30/2022 XR, ankle completed [id number] [facility] [address], [place], [address], 12/22/2022 20:55:59 07/13/2023 CT, abdomen + pelvis, w/ contrast completed [email or web address] [facility] [address], [place], [address], 08/11/2023 16:08:21 Procedure Notes None recorded. Medical Equipment None Reported. Allergies No known drug allergies Medications Name Sig Start Date Stop Date Status Note LastModified by Organization Details LastModified Time atorvastatin 40 mg tablet TAKE 1 TABLET BY MOUTH EVERY DAY active Not Available Not Available No t Available azithromycin 250 mg tablet 02/22 completed Not Available Not Available Not Available acetaminophe n 300 mg-codeine 30 mg tablet TAKE 1 TO 2 TABLETS BY MOUTH EVERY 6 HOURS NEEDED FOR PAIN active Not Available Not Available No t Available tramadol 50 mg tablet TAKE 1 TABLET BY MOUTH EVERY 8 HOURS NEEDED 10/30 completed Not Available Not Available Not Available oxycodone-ac etaminophen 5 mg-325 mg tablet TAKE 1 TABLET BY MOUTH EVERY 4 HOURS NEEDED FOR PAIN active Not Available Not Available No t Available prednisolone acetate 1 % eye drops,suspen braden 02/22 completed Not Available Not Available Not Available oseltamivir 75 mg capsule 02/22 completed Not Available Not Available Not Available ibuprofen 600 mg tablet active Not Available Not Available Not Available chlorhexidin e gluconate 0.12 % mouthwash SWISH AND SPIT BY MOUTH 10 TO 15 ML BY MOUTH TWICE DAILY active Not Available Not Available No t Available Vitals Date Recorded Body mass index (BMI) Body mass index (BMI) Body height Body height Oxygen saturation Oxygen saturation in Arterial blood by Pulse oximetry Heart rate Heart rate Body temperature Body weight Body weight Systolic blood pressure Diastolic blood pressure Systolic blood pressure Diastolic blood pressure Provider Name and Address Organization Details Last Updated DateTime 3 31.9 kg/m2 31.9 kg/m2 177.8 cm 177.8 cm 98 % 98 % 85.99 /min 91 /min 97 [degF] 569273. 51 g 357686. 51 g 140 mm[Hg] 100 mm[Hg] 147 mm[Hg] 97 mm[Hg] Not Available [facility] 3 20:54:49 Date Recorded Body weight Body mass index (BMI) Body height Body temperature Heart rate Oxygen saturation Oxygen saturation in Arterial blood by Pulse oximetry Systolic blood pressure Diastolic blood pressure Provider Name and Address Organization Details Last Updated DateTime 3 87900.3 6 g 30.8 kg/m2 177.8 cm 97.8 [degF] 88 /min 98 % 98 % 138 mm[Hg] 90 mm[Hg] Nu Lee RN [place] [facility] [employer] [facility] 3 09:18:10 Date Recorded Body height Body mass index (BMI) Body weight Heart rate Respiratory rate Body temperature Oxygen saturation Oxygen saturation in Arterial blood by Pulse oximetry Systolic blood pressure Diastolic blood pressure Provider Name and Address Organization Details Last Updated DateTime 3 177.8 cm 30.8 kg/m2 39259.3 6 g 82 /min 16 /min 97.9 [degF] 98 % 98 % 120 mm[Hg] 84 mm[Hg] Polina Aguiar [facility] [employer] [facility] 3 12:41:11 Date Recorded Body height Body mass index (BMI) Body weight Body temperature Heart rate Respiratory rate Oxygen saturation Oxygen saturation in Arterial blood by Pulse oximetry Systolic blood pressure Diastolic blood pressure Provider Name and Address Organization Details Last Updated DateTime 3 177.8 cm 30.8 kg/m2 61138.3 6 g 97.9 [degF] 82 /min 16 /min 98 % 98 % 120 mm[Hg] 84 mm[Hg] Polina Aguiar [facility] [employer] [facility] 3 10:28:43 Social History Question Answer Notes LastModified by Organizat ion Details LastModified Time Tobacco Smoking Status Never Smoker [facility] [employer] [facility] 08/30/2023 11:48:43 Do You Have An Advance Directive? No [id number] Information not available 12/22/2022 What Is Your Level Of Alcohol Consumption? Occasional [id number] Information not available 12/22/2022 What Is Your Level Of Caffeine Consumption? Occasional [id number] Information not available 12/22/2022 What Type Of Diet Are You Following? REGULAR [id number] Information not available 12/22/2022 Are There Any Guns Present In Your Home? Yes Information not available 08/30/2023 What Was The Date Of Your Most Recent Tobacco Screening? 09/24/2021 Information not available 08/30/2023 Have You Ever Been Counseled For Unhealthy Alcohol Use? No Information not available 08/30/2023 Do You Use Your Seat Belt Or Car Seat Routinely? Yes Information not available 08/30/2023 Do You Have Smoke And Carbon Monoxide Detectors In Your Home? Yes Information not available 08/30/2023 Do You Use Any Illicit Or Recreational Drugs? No Information not available 08/30/2023 Do You Use Sunscreen Routinely? Yes Information not available 08/30/2023 Has Tobacco Cessation Counseling Been Provided? No Information not available 08/30/2023 Do You Or Have You Ever Used Any Other Forms Of Tobacco Or Nicotine? No Information not available 08/30/2023 Sex: Male Functional Status Question Answer Note LastModified by Organizat ion Details LastModified Time What is your exercise level? Moderate [id number] Information not available 12/22/2022 Mental Status None recorded. Family History Relationship Description Onset Age of this Age Resolved Age Notes LastModified by Organization Details LastModified Time Mother Hypertensive disorder [id number] Not available 12/22/2022 20:54:26 Mother Malignant tumor of breast [email or web address] Not available 2022 11:48:43 Mother Arthritis [email or web address] Not available 08/30/2023 11:48:43 Maternal Grandmother Diabetes mellitus [id number] Not available 12/22/2022 20:54:27 Maternal Grandmother Congestive heart failure [email or web address] Not available 2022 11:48:43 Father Hypertensive disorder [id number] Not available 12/22/2022 20:54:27 Medical History No medical history recorded. Past Encounters Encounter ID Performer Location Encounter Start Date Encounter Closed Date Diagnosis/Indication Diagnosis SNOMED-CT Code Diagnosis ICD10 Code Diagnosis Note [id number] [facility] [address], [address] [address] 09/24/2021 00:00:00 09/24/2021 09:46:33 [id number] [facility] [address], [address] [address] 10/08/2021 00:00:00 10/08/2021 12:59:37 [id number] [facility] [place] [address] [place] [address], [address] [address] 10/29/2021 00:00:00 10/29/2021 11:53:01 [id number] [facility] [place] [address] [place] [address] 10/30/2021 00:00:00 11/23/2021 18:21:41 [id number] [facility] [place] [address], [address] [place] [address] 11/19/2021 00:00:00 11/19/2021 15:33:31 [id number] [facility] [place] [address] [place] [address] 12/11/2021 00:00:00 12/20/2021 17:53:13 [id number] [facility] [place] [address] [place] [address] 12/24/2021 00:00:00 12/24/2021 11:52:34 [id number] PRANEETH Stanton [facility] [place] [address] [place] [address] 07/06/2023 09:02:56 07/06/2023 09:44:15 Mass of left lower quadrant of abdomen 040469800 R19.[address] scan a/p w/c. check baseline cbc and cmp Mixed hyperlipidemia 267 091809 E78.2 on statin therapy and due for fasting labs Diabetes m ellitus screening 759058257 Z13.1 screening diabetes due Screening for malignant neoplasm of prostate 953328660 Z12.5 annual PSA screen due for baseline evaluation . Pain of left testicle 16 [id number] 8227050 N50.812 check urine for cx and G&C for complete evaluation . Thyroid di sorder screening 190366924 Z13.29 thyroid panel ordered. [id number] Brennen orlando MD [facility] [place] [address] [address] 08/30/2023 11:48:29 08/31/2023 16:29:04 Mass of soft tissue 000751337 R22.9 abdominal wall [id number] Brennen orlando MD [facility] General Surgery [address] [address] 09/29/2023 10:14:58 09/29/2023 16:14:04 Health Concerns Section Related Observation LastModified by Organization Detai ls LastModified Time None Recorded Concern Status LastModified by Organization Details LastModified Time None Recorded Advance Directives Directive N: Payers Encounter Date Sequence Insurance Name Policy Number Policy Alvarado Covered Member ID Alvarado Member ID Guarantor Name 07/06/2023 1 [place] [id number] Kar Green Reinard [id number] Kar Green Reinard 08/30/2023 1 [place] [id number] Kar Green Reinard [id number] Kar Green Reinard 09/29/2023 1 [place] [id number] Kar Green Reinard [id number] Kar Linton Notes Date Note Type Note Provider Name and Address Organization Details Recorded Time 2 text/html Generic HPI TemplateReported bypatient.Notes:Pt is here today to go over his most recent labs with you and to follow up on his BPHypertensionReported bypatient.Onset/Timing:bet ter Self Care:not under emotional stress Associated Symptoms:no shortness of breath; no fatigue; no palpitations; no decline in exercise capacity; no snoring Not Available [facility] 12/20/2021 17:53:13 3 text/html Generic HPI TemplateReported bypatient.Onset/Timing:one year agoNotes:lump L pelvic region , nontender. no injury. no redness or drainage. no warmth. PRANEETH Stanton [address], [place], [address], [facility] 07/23/2023 00:03:55 3 text/html patient complains of lumps and left lower abdomen that he has had for some time. Was told he had a fatty tumor. Becoming larger and more painful. Denies nausea vomiting fevers chills or other constitutional symptoms Brennen Stevenson MD [address], [place], [address], [facility] 08/30/2023 13:37:46 3 text/html Some soreness otherwise doing well Brennen Stevenson MD [address] [facility], [facility] [address], [place], [address], [facility] 09/29/2023 10:46:38
[2024-12-11 14:32] LABS: Basophils Absolute Auto 0.1 K/mm3 (0.0-0.1); Basophils Percent Auto 1.1 % (0.2-1.2); Eosinophils Absolute Auto 0.3 K/mm3 (0-0.3); Eosinophils Percent Auto 3.8 % (0-4.4); Hematocrit 48.1 % (42.0-52.0); Hemoglobin 16.3 g/dL (14.0-18.0); Immature Granulocyte Absolute 0.02 K/mm3 (0.00-0.031); Immature Granulocyte Percent A 0.3 % (0-0.5); Lymphocytes Absolute Auto 1.65 K/mm3 (0.9-3.2); Lymphocytes Percent Auto 25.2 % (18.3-44.2); Mean Corpuscular HGB Conc 33.9 g/dl (32-36); Mean Corpuscular Volume 85.4 fl (80-100); Mean Platelet Volume 9.7 fl (7.4-10.4); Monocytes Percent Auto 14.5 % (2.6-8.5); Neutrophils Absolute Auto 3.6 K/mm3 (1.3-6.7); Neutrophils Percent Auto 55.1 % (45.5-73.1); Platelet Count Result 234 k/mm3 (150-375); Red Blood Count 5.63 M/mm3 (4.6-6.20); Red Cell Distribution Width 12.6 % (11.5-14.5); White Blood Count 6.5 K/mm3 (4.5-10.0)
[2024-12-11 15:06] LABS: Influenza A QL RT-PCR Negative (Negative); Influenza B QL RT-PCR Negative (Negative); RSV RNA, RT-PCR Negative (Negative); SARS-CoV-2 RNA PCR Positive (Negative)
== END 2024-12-11 13:42 | disposition home or self-care (01) ==
PROVIDERS: PCP Internal Medicine; Visit Provider Internal Medicine
DX: U07.1 COVID-19 (principal)
CPT/HCPCS: 36415; 71046; 85025; 87637

== ENCOUNTER 2025-03-22 08:56 | Outpatient (CLI) | payer BC, SELFPAY ==
--- NOTE | ~2025-03-22 | XR_ITS ---
Left wrist Technique: PA, oblique, lateral, and ulnar deviation views were obtained. Clinical History: Pain Findings: No acute fracture or dislocation is seen. Osseous alignment is anatomic. Joint spaces are p reserved. Soft tissues are unremarkable. Impression: Unremarkable left wrist radiographs. Reviewed, dictated and finalized at location . Impression: Unremarkable left wrist radiographs.
--- NOTE | ~2025-03-22 | XR_ITS ---
Left elbow Technique: AP, oblique, and lateral views were obtained. Clinical History: Pain Findings: No acute fracture or dislocation is seen. Osseous alignment is anatomic. Joint spaces are p reserved. There is no displacement of the fat pads, and soft tissues are unremarkable. Impression: Unremarkable radiographs. Reviewed, dictated and finalized at location . Impression: Unremarkable radiographs.
--- NOTE | ~2025-03-22 | XR_ITS ---
Left Humerus Technique: AP and lateral views were obtained. Clinical History: Pain Findings: No fracture or dislocation is seen. Osseous alignment is anatomic. Visualized joint spaces are grossly preserved. Soft tissues are unremarkable. Impression: Unremarkable examination. No fracture or dislocation. Reviewed, dictated and finalized at location . Impression: Unremarkable examination. No fracture or dislocation.
--- OUTSIDE RECORDS SUMMARY | 2025-03-22 09:06 | XMS_ITS | Encounter Summary ---
Author Organization [facility] Healthcare Address [address] [place] [address] Care Team Providers Care Rail Car Repairer Name Role Phone Celia Martinez Primary Care Pr ovider Gerald Antony MD Primary Care Provider [phone] Encounter Details Date Type Department Care Team (Late st Contact Info) Description 08/30/2023 Orders Only 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 Gender Identity Not on file Sexual Orientation Not on file documented as of this encounter Plan of Treatment Not on file documented as of this encounter Visit Diagnoses Diagnosis Family history of genetic disease carrier- Primary Family history of breast cancer Family history of malignant neoplasm of breast documented in this encounter Care Teams Rail Car Repairer Relationship Specialty Start Date End Date Celia Martinez PA PCP - General 10/02/21 01/22/24 Gerald Antony MD [address] [facility] [address] [place] [address] PCP - General Family Medicine 01/23/24 documented as of this encounter
--- OUTSIDE RECORDS SUMMARY | 2025-03-22 09:07 | XMS_ITS | Clinical Summary ---
Author Organization [facility] [employer] Address [address] [facility] [place] [address] Care Team Providers Care Comb Tender Name Role Phone Unavailable Primary Care Provider Unavailabl e Source Comments [facility] [employer],non-owned Affiliates and Associated Physician Practices is amultiple site organization consisting of ambulatory clinics and hospital sitesin [place], [place], [place] and [place]. This disclosure is being madepursuant to the Care Everywhere program and may not contain all information available regarding this patient. Last updated 18.[facility] [employer] Allergies No known active allergies Medications * Be aware that medications may not be up to date on this document. Alwaysverify current medications with the patient. No known medications Immunizations Immunization Administration Dates Next Due TDAP (7yrs+) 03/10/2017 Social History Tobacco Use Types Packs/Day Years Used Date Smoking Tobacco: Former Cigars Smokeless Tobacco: Never Sex and Gender Information Value Date Recorded Sex Assigned at Not on file Legal Sex Male 10:06 AM CDT Gender Identity Not on file Sexual Orientation Not on file Last Filed Vital Signs Vital Sign Reading Time Taken Comments Blood Pressure 122/80 12/31/2017 12:36 PM CUSTOMER SUPPORT SPECIALIST Pulse 79 12/31/2017 12:36 PM CUSTOMER SUPPORT SPECIALIST Temperature 36.9 C (98.4 F) 12/31/2017 12:36 PM CUSTOMER SUPPORT SPECIALIST Respiratory Rate 14 12/31/2017 12:36 PM CUSTOMER SUPPORT SPECIALIST Oxygen Saturation 97% 12/31/2017 12:36 PM CUSTOMER SUPPORT SPECIALIST Inhaled Oxygen Concentration - - Weight 86.2 kg (190 lb) 12/31/2017 12:36 PM CUSTOMER SUPPORT SPECIALIST Height 177.8 cm (5' 10) 12/31/2017 12:36 PM CUSTOMER SUPPORT SPECIALIST Body Mass Index 27.26 12/31/2017 12:36 PM CUSTOMER SUPPORT SPECIALIST Plan of Treatment Health Maintenance Due Date Last Done Comments LIPID TESTING 1983 HIV SCREENING 1998 HEPATITIS C SCREENING 03/21/2001 HEPATITIS B VACCINE (1 of 3 - 19+ 3-dose series) 2002 COVID-19 VACCINE (1 - 2023-2 5 season) 2024 DEPRESSION SCREENING 10/24/2024 INFLUENZA VACCINE (Season Ended) 2025 DTAP/TDAP/TD VACCINES (2 - T d or Tdap) 03/10/2027 03/10/2017 ZOSTER VACCINE (1 of 2) 2033 HIB VACCINE Aged Out No longer eligi ble based on patient's age to complete this topic HPV VACCINE Aged Out No longer eligi ble based on patient's age to complete this topic MENINGOCOCCAL (Group B) VACC INE SHARED DECISION-MAKING Aged Out No longer eligibl e based on patient's age to complete this topic MENINGOCOCCAL GROUPS A/C/Y/W VACCINE Aged Out No longer eligible b ased on patient's age to complete this topic PNEUMOCOCCAL VACCINE Aged Out No long er eligible based on patient's age to complete this topic Insurance RAIN
--- OUTSIDE RECORDS SUMMARY | 2025-03-22 09:07 | XMS_ITS | Referral Summary ---
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
--- OUTSIDE RECORDS SUMMARY | 2025-03-22 09:07 | XMS_ITS | Clinical Summary ---
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 on file Not on file Not [...] 2-dose series) 1996 Hepatitis B Screening 2001 Depression Screening 01/22/2025 01/23/2024 Regular Well Visit/Exam 18-64 01/22/2025 01/23/2024 Influenza Vaccine (Season Ended) 2025 08/08/2020 DTaP/Tdap/Td Vaccine (7 - Td or Tdap) [...] GENERAL ORDERABLES Final Result Performing Organization Address City/State/[facility] Co pr Phone Number [facility] [address] [place] [address] from Last 3 Months or Most Recently Relevant to Health Maintenance Insurance [facility] Care Teams Buggy Ladle Tender Relationship Specialty Start Date End Date Gerald Antony MD [address] [address] PCP - General Family Medicine 01/23/24
== END 2025-03-22 08:57 | disposition home or self-care (01) ==
LOC: ANHIMG 09:02
PROVIDERS: PCP Internal Medicine; Visit Provider Internal Medicine
DX: M25.522 Pain in left elbow (principal); M79.602 Pain in left arm; T14.90XA Injury, unspecified, initial encounter
CPT/HCPCS: 73060; 73080; 73110